=== PATIENT | female | born 1985 | race African-American/Black ===

== ENCOUNTER 2017-06-06 08:27 | Emergency (ER) | payer BC ==
[2017-06-06 08:37] VITALS: BP 147/98; BMI 48.2
--- NOTE | 2017-06-06 08:56 | DR.EXTPAIN ---
HPI - Time seen Time seen: 08:55 - PCP Primary Care Physician: NADIA ALEXANDER - HPI Comment HPI Comment: GETTING WORSE. LIMPING. - Complaint/Symptoms Chief Complaint Doctor Comments: INJURY LEFT ANKLE WITH PAIN AND SWELLING TIMES 3 DAYS. Chief Complaint:: PT C/O 2 DAYS AGO EXERCIZING AND HURTING HER LEFT ANKLE AND THAT IT SWELLED UP AND SHE IS LIMPING,, Self Treatment fo Chief Complaint: ULTRAM , ANGELITO , - Nurses notes reviewed Nurses Notes Review: Yes - Source History Provided: Patient - Mode of arrival Mode of Arrival: Ambulatory - Timing Onset of Chief Complaint: 06/04/17 - Context History of: None - Associated signs and symptoms Associated Signs and Symptoms: Pain PMH - PMH Past Medical History: Yes Past Medical History: Hypertension Past Surgical History: No - Family History History of Family Medical Conditions: No - Social History Does patient currently use any type of tobacco product: No Have you used tobacco products in the last 12 months: No Type of Tobacco Use: None Does any household member use tobacco: No Alcohol Use: Rarely Do you use any recreational Drugs:: No Lives With: Family Lives Where: Home - infectious screening In the last 2 months have you had wt loss of >10#?: NO Have you had fever, night sweats or hemotysis?: No Have you traveled outside the country in the last 6 months?: No Isolation: Standard ROS - Review of Systems Constitutional: No Symptoms Reported Eyes: No Symptoms Reported ENTM: No Symptoms Reported Respiratoy: No Symptoms Reported Cardiovascular: No Symptoms Reported Gastrointestinal/Abdominal: No Symptoms Reported Genitourinary: No Symptoms Reported Neurological: No Symptoms Reported Musculoskeletal: Left, Ankle Integumentary: No Symptoms Reported Hematologic/Lymphatic: No Symptoms Reported Endocrine: No Symptoms Reported All Other Systems: Reviewed and Negative PE - Vital Signs Vitals: Temperature 97.8 F Pulse Rate 82 Respiratory Rate 18 Blood Pressure 147/98 O2 Sat by Pulse Oximetry 97 - General Limitations: No Limitations General Appearance: Alert - Head Head Exam: Normal Inspection - Eyes Eye exam: Normal Appearance - ENT ENT Exam: Normal External Ear Exam - Neck Neck Exam: Normal Inspection - Chest Chest Inspection: Symmetric Chest Wall Rise - Respiratory Respiratory Exam: Normal Lung Sounds Bilat Respiratory Exam: Bilateral Clear to Auscultation - Cardiovascular Cardiovascular Exam: Regular Rate, Normal Rhythm, Normal Heart Sounds - Abdominal Exam Abdominal Exam: Normal Inspection - Extremities Extremities Exam: Tenderness (LT ANKLE WITHSWELLING AND TENDERNESS OVER MEDIAL MALLEOLUS. PULSE INTACT. ROM DECREASE.), Joint Swelling (ROM DECREASE LT ANKLE.) - Lower Extremities Neurovascular/Tendon Exam: Normal Capillary Refill Gait Exam: Observed & Limited by Pain - Back Back Exam: Normal Inspection - Neurological Neurological Exam: Alert, Oriented X3 - Psychiatric Psychiatric Exam: Normal Affect, Normal Mood - Skin Skin Exam: Erythema MDM - Differential Diagnosis Differential Diagnosis: Contusion, Fracture, Sprain Course - Treatment Treatment: SEE ORDERS - Education/Counseling Education/Counseling: Patient, Education Educated On: Diagnosis, Needs for Follow Up ROR - XRAY XRAY Interpreted by: Radiologist XRAY Findings: REPORT DISCUSS WITH PATIENT. - Diagnosis Discharge Problem: Left ankle sprain Qualifiers: Encounter type: initial encounter Involved ligament of ankle: unspecified ligament Qualified Code(s): S93.402A - Sprain of unspecified ligament of left ankle, initial encounter - Discharge Plan Disposition: HOME, SELF-CARE Condition: Stable Prescriptions: Ibuprofen [MOTRIN TAB 800 MG *] 800 mg PO Q8H PRN #20 tab PRN Reason: Pain/Inflammation Tramadol HCl 50 mg PO Q8H #15 tablet - Follow ups/Referrals Follow ups/Referrals: Kofi Garcia [STAFF PHYSICIAN] - 2 days [facility],None [Primary Care Provider] - 2 days - Instructions Instructions: Acute Ankle Sprain With Phase I Rehab-Sports[facility] Additional Instructions: RETURN TO ED IF WORSE.
--- NOTE | 2017-06-06 09:52 | RAD ---
HISTORY: Ankle pain Study: Three views left ankle Comparison: None Findings: No acute cortical disruption or dislocation can be identified. The ankle mortise remains well aligne d. No significant soft tissue swelling or injury can be seen. The visualized portions of the talus and calcaneus are unremarkable. IMPRESSION: 1. Negative exam. Reported By:
== END 2017-06-06 09:46 | disposition home or self-care (01) ==
LOC: ER 08:46
DX: S93.402A Sprain of unspecified ligament of left ankle, initial encounter (principal); Y33.XXXA Other specified events, undetermined intent, initial encounter; Y92.9 Unspecified place or not applicable
CPT/HCPCS: 73610; 99282